=== PATIENT | female | born 1970 | race Caucasian/White ===

== ENCOUNTER 2025-07-02 10:14 | Emergency (ER) | payer OTHER, SELFPAY ==
--- NOTE | ~2025-07-02 | XR_ITS ---
XR wrist RT min 3V 07/02/2025 10:35 INDICATION: Right wrist pain after fall PROCEDURE: 4 views right wrist COMPARISON: No prior studies for comparison. FINDINGS: Fracture, dislocation or subluxation is not identified. Small corticated ossific density ve ntral to the carpal bones on the oblique image, likely related to old trauma. The soft tissues appear within normal limits. No foreign bodies are identified. IMPRESSION: 1: NO ACUTE BONE OR JOINT ABNORMALITY IDENTIFIED. Reviewed, dictated and finalized at location A.
--- NOTE | 2025-07-02 10:17 | ED_ITS ---
HPI - Extremity Injury (Upper) General Chief Complaint: Extremity Injury, Upper Stated Complaint: R Wrist Pain Time Seen by Provider: 07/02/25 10:17 Source: patient Mode of arrival: ambulatory Limitations: no limitations History of Present Illness HPI narrative: Glendy is a 54-year-old female patient presenting to the clinic today with complaints of right wrist pain x1 day. She reports she fell last night and outstretched her right arm to brace her fall. Is having right radial wrist pain. Pain with some movement and gripping objects. Has not taken anything for pain. Rates pain 02/01. Related Data Allergies Allergy/AdvReac Type Severity Reaction Status Date / Time chemo Allergy Intermediate Unknown Uncoded 07/02/25 10:28 Review of Systems Review of Systems: Pertinent positives per HPI. Patient denies any fever, chills, rash, headache, visual changes, dizziness, cough, runny nose, sore throat, shortness of breath, chest pain, palpitations, nausea, vomiting, diarrhea, constipation, abdominal pain, or any urinary issues. PMFSH Comments At the time of my signature, I reviewed and agree with the nursing past medical, surgical, social, and family history. There is no relevant family history pertinent to the patient complaint. Exam Narrative: General: Well-developed, well nourished, in no apparent distress Head: Normocephalic, atraumatic. Cardio: Regular rate and rhythm, s1 and s2 normal, no murmur appreciated. Resp: Clear to auscultation bilaterally, no rhonchi, rales, wheezing or rubs. Musculoskeletal: No deformity, mild right hand swelling when compared to left, tender to palpation over the distal radius, pain with hyperextension of the wrist and with radial deviation, grossly normal range of motion, hand grasp strong and equal, muscle strength strong and equal, peripheral pulse strong, no cyanosis, normal gait and station Course Course Emergency Course: Portions of this record may have been created with voice recognition software. Level of Care: Express Care Visit Vital Signs Vital signs: Vital Signs Temperature 36.3 C L 07/02/25 10:24 Pulse Rate 66 07/02/25 10:24 Respiratory Rate 16 07/02/25 10:24 Blood Pressure 141/91 H 07/02/25 10:24 Pulse Oximetry 100 07/02/25 10:24 Temperature 36.3 C L 07/02/25 10:24 Pulse Rate 66 07/02/25 10:24 Respiratory Rate 16 07/02/25 10:24 Blood Pressure 141/91 H 07/02/25 10:24 Pulse Oximetry 100 07/02/25 10:24 Vital signs reviewed MDM - Extremity Injury (Upper) MDM Narrative Medical decision making narrative: At the time of visit patient is resting comfortably on the exam table. Patient appears to be nontoxic. Complaints of right wrist pain x1 day. She reports she fell last night and outstretched her right arm to brace her fall. Is having right radial wrist pain. Pain with some movement and gripping objects. Has not taken anything for pain. Rates pain 3/10. Diagnostics: Right wrist x-ray performed-negative for any fracture or malalignment. Plan: I suspect patient has wrist sprain. Daryl wrap and Ice pack given. CSM within normal limit after application of the daryl wrap. Supportive measures were discussed with the patient and they voiced understanding discharge instructions and agrees to treatment plan. Return precautions reviewed Differential Diagnosis Differential diagnosis: Likely sprain and strain of wrist and fracture of wrist Imaging Data Radiologist's impression: ITS Impressions Wrist X-Ray 07/02/25 10:40 IMPRESSION: 1: NO ACUTE BONE OR JOINT ABNORMALITY IDENTIFIED. Discharge Plan Discharge Clinical Impression: Right wrist sprain Qualifiers: Encounter type: initial encounter Wrist sprain location: radiocarpal joint Qualified Code(s): S63.521A - Sprain of radiocarpal joint of right wrist, initial encounter Patient Disposition: Home Condition: Stable Instructions: Antibiotic Form, Wrist Injury (ED), Wrist Sprain (ED) Additional Instructions: X-rays negative for any sign of fracture or malalignment of the right wrist Rest, ice, elevate, and wear daryl wrap as directed Tylenol/motrin for pain as discussed. Follow up with your PCP if symptoms persist more than 1 week. Patient Language: Argentine Follow-up/Referrals: UNKNOWN,DOCTOR [Non-Staff] - Time of Disposition: 10:53 Quality NIHSS Nursing Documentation ED NIHSS nursing documentation: reviewed/agree
[2025-07-02 10:24] VITALS: BP 141/91; PULSE 66; RESP 16; TEMP 36.3; O2SAT 100
== END 2025-07-02 10:57 | disposition home or self-care (01) ==
PROVIDERS: Emergency Provider Nurse Practitioner Family
DX: S63.501A Unspecified sprain of right wrist, initial encounter (principal); W19.XXXA Unspecified fall, initial encounter; I10 Essential (primary) hypertension; K21.9 Gastro-esophageal reflux disease without esophagitis; Z85.3 Personal history of malignant neoplasm of breast; Z92.21 Personal history of antineoplastic chemotherapy
CPT/HCPCS: 73110; 99203; G0463